=== PATIENT | male | born 1970 | race Caucasian/White ===

== ENCOUNTER 2017-01-19 18:30 | Inpatient (IN) | payer OTHER ==
[2017-01-19 18:48] VITALS: BMI 27.6
--- NOTE | 2017-01-19 20:07 | HP ---
COWS - Scale Resting Pulse: 0= [place] 80 or Below Sweatin= Chills/Flushing Restless Observation: 1= Difficult to Sit Still Pupil Size: 0= Normal to Room Light Bone or Joint Aches: 2= Severe Diffuse Aches Runny Nose/ Eye Tearin= Runny Nose/Eyes GI Upset > 30mins: 2= Nausea/Diarrhea Tremor Observation: 2= Slight Tremor Visible Yawning Observation: 1= 1-2x During Session Anxiety or Irritability: 2=Irritable/Anxious Goose Flesh Skin: 0=Smooth Skin COWS Score: 13 CIWA Score - CIWA Score Nausea/Vomitin-Mild Nausea/No Vomiting Muscle Tremors: 4-Moderate,w/Arms Extend Anxiety: 4-Mod. Anxious/Guarded Agitation: 4-Moderately Restless Paroxysmal Sweats: 1-Minimal Palms Moist Orientation: 0-Oriented Tacttile Disturbances: 0-None Auditory Disturbances: 0-None Visual Disturbances: 0-None Headache: 0-None Present CIWA-Ar Total Score: 14 Admission [facility] - HPI Chief Complaint: WITHDRAWAL SX Allergies/Adverse Reactions: Allergies Allergy/AdvReac Type Severity Reaction Status Date / Time chlorpromazine HCl Allergy Severe Swelling Verified 09/10/16 19:00 [From Thorazine] gabapentin [From Neurontin] Allergy Severe Swelling Verified 09/10/16 19:00 haloperidol [From Haldol] Allergy Severe Swelling Verified 09/10/16 19:00 haloperidol lactate Allergy Severe Swelling Verified 09/10/16 19:00 [From Haldol] History of Present Illness: 46 YEARS OLD MALE WITH LONG HISTORY OF OPIOID XANAX KLONOPIN NICOTINE DEPENDENCE DENIES MEDICAL ISSUE HAS SCHIZOAFFECTIVE DISORDER IS ADMITTED TO DETOX Exam Limitations: No Limitations - Ebola screening Have you traveled outside of the country in the last 21 days: No Have you had contact with anyone from an Ebola affected area: No Have you been sick,other than usual withdrawal symptoms: No Do you have a fever: No - Review of Systems Constitutional: Chills, Changes in sleep, Weight Stable EENT: reports: No Symptoms Reported Respiratory: reports: No Symptoms reported Cardiac: reports: No Symptoms Reported GI: reports: Nausea, Poor Fluid Intake, Abdominal cramping : reports: No Symptoms Reported Musculoskeletal: reports: Back Pain, Joint Pain, Muscle Pain, Neck Pain Integumentary: reports: No Symptoms Reported Neuro: reports: Tremors Endocrine: reports: No Symptoms Reported Hematology: reports: No Symptoms Reported Psychiatric: reports: Judgement Intact, Depressed Other Systems: Reviewed and Negative Patient History - Patient Medical History Hx Anemia: No Hx Asthma: No Hx Chronic Obstructive Pulmonary Disease (COPD): No Hx Cancer: No Hx Cardiac Disorders: No Hx Congestive Heart Failure: No Hx Hypertension: No Hx Hypercholesterolemia: No Hx Pacemaker: No HX Cerebrovascular Accident: No Hx Seizures: No Hx Dementia: No Hx Diabetes: No Hx Gastrointestinal Disorders: No Hx Liver Disease: No Hx Genitourinary Disorders: No Hx Sexually Transmitted Disorders: No Hx Renal Disease (ESRD): No Hx Thyroid Disease: No Hx Human Immunodeficiency Virus (HIV): No (06/04 lastnegative) Hx Hepatitis C: No Hx Depression: No Hx Suicide Attempt: No Hx Bipolar Disorder: Yes Hx Schizophrenia: No - Patient Surgical History Past Surgical History: No Hx Neurologic Surgery: Yes (r/t Head Injury 2014) Hx Cataract Extraction: No Hx Cardiac Surgery: No Hx Lung Surgery: No Hx Breast Surgery: No Hx Breast Biopsy: No Hx Abdominal Surgery: No Hx Appendectomy: No Hx Cholecystectomy: No Hx Genitourinary Surgery: No Hx Orthopedic Surgery: No Anesthesia Reaction: No - PPD History Previous Implant?: Yes Documented Results: Negative w/o proof Implanted On Prior R Admission?: Yes Date: 09/12/16 PPD to be Administered?: Yes - Smoking Cessation Smoking history: Current every day smoker Have you smoked in the past 12 months: Yes Aproximately how many cigarettes per day: 20 Cigars Per Day: 0 Hx Chewing Tobacco Use: No Initiated information on smoking cessation: Yes 'Breaking Loose' booklet given: 01/19/17 - Substance & Tx. History Hx Alcohol Use: No Hx Substance Use: Yes Substance Use Type: Opiates Hx Substance Use Treatment: Yes - Substances Abused Heroin Route: Inhalation Frequency: Daily Amount used: 10 bags Age of first use: 22 Date of Last Use: 01/18/17 Alprazolam (Xanax) Route: Oral Frequency: 3-6 times per week Amount used: 5mg Age of first use: 31 Date of Last Use: 01/18/17 Benzodiazepine (Klonopin) Route: Oral Frequency: 3-6 times per week Amount used: 3 x 2mg Age of first use: 26 Date of Last Use: 01/18/17 Family Disease History - Family Disease History Family Disease History: Other: Father (alcohol), Mother (alcohol), Brother ( alcohol,dsa), Sister (alcohol,dsa) Admission Physical Exam [facility] - Vital Signs Vital Signs: Vital Signs - 24 hr 01/19/17 18:40 Temperature 96.4 F L Pulse Rate 69 Respiratory 18 Rate Blood Pressure 118/75 - Physical General Appearance: Yes: Nourished, Appropriately Dressed, Mild Distress, Tremorous, Irritable, Sweating, Anxious HEENTM: Yes: Hearing grossly Normal, Normal ENT Inspection, Normocephalic, Normal Voice Respiratory: Yes: Chest Non-Tender, Lungs Clear, Normal Breath Sounds, No Respiratory Distress, No Accessory Muscle Use Neck: Yes: Supple, Trachea in good position Breast: Yes: Breasts Symetrical Cardiology: Yes: Regular Rhythm, Regular Rate, S1, S2 Abdominal: Yes: Non Tender, Soft Genitourinary: Yes: Within Normal Limits Back: Yes: Normal Inspection Musculoskeletal: Yes: full range of Motion, Gait Steady, Back pain, Muscle Pain Extremities: Yes: Normal Inspection, Normal Range of Motion, Non-Tender, Tremors Neurological: Yes: Alert, Motor Strength 5/5, Normal Response, Depressed Affect Integumentary: Yes: Warm Lymphatic: Yes: Within Normal Limits Cleared for Admission [facility] - Detox or Rehab [facility] Level of Care: Medically Managed Detox Regimen/Protocol: Methadone [facility] Breath Alcohol Content Breath Alcohol Content: 0.026 Urine Drug Screen - Control Is Test Valid: Yes - Results Drug Screen Negative: No Urine Drug Screen Results: OPI-Opiates, TCA-Tricyclic Antidepress
[2017-01-19] MEDS ORDERED: LOPERAMIDE HCL 2 MG CAPSULE PO PRN (20:14)
[2017-01-19] MEDS ORDERED: P-EPHED 60MG/TRIPROLIDI 2.5MG TABLET PO PRN (20:14)
[2017-01-19] MEDS ORDERED: MAG HYDROX/AL HYDROX/SIMETH 30 ML UNIT-DOSE CUP PO PRN (20:14)
[2017-01-19] MEDS ORDERED: diphenhydrAMINE HCL 50 MG CAPSULE PO PRN (20:14)
[2017-01-19] MEDS ORDERED: guaiFENesin/D-METHORPHAN HB 10 ML UNIT-DOSE CUPS PO PRN (20:14)
[2017-01-19] MEDS ORDERED: MAGNESIUM HYDROX 2400MG/30ML ORAL SUSPENSION 30 ML CUP PO PRN (20:14)
[2017-01-19] MEDS ORDERED: MENTHOL/PHENOL 1 EACH UD MM PRN (20:14)
[2017-01-19] MEDS ORDERED: ACETAMINOPHEN 325 MG TABLET (FP) PO PRN (20:14)
[2017-01-19] MEDS ORDERED: MAGNESIUM CITRATE 300 ML BOTTLE PO PRN (20:14)
[2017-01-19] MEDS ORDERED: METHADONE HCL 10 MG TABLET (FOR DETOX USE ONLY) PO ONE ×2 (20:14→23:00)
[2017-01-19] MEDS: diazePAM 5 MG TABLET PO PRN (22:26)
[2017-01-19] MEDS: RANITIDINE HCL 150 MG TABLET (FP) PO SCH (22:27)
[2017-01-19] MEDS: THIAMINE HCL 100 MG TABLET (FP) PO SCH (22:27)
[2017-01-19] MEDS: NICOTINE POLACRILEX 4 MG GUM BC PRN (22:28)
[2017-01-20 00:01] LABS: URINE APPEARANCE CLEAR; URINE BILIRUBIN NEGATIVE (NEGATIVE); URINE BLOOD NEGATIVE (NEGATIVE); URINE COLOR YELLOW; URINE GLUCOSE (UA) NEGATIVE (NEGATIVE); URINE KETONE NEGATIVE (NEGATIVE); URINE LEUK ESTERASE NEGATIVE (NEGATIVE); URINE NITRITE NEGATIVE (NEGATIVE); URINE PROTEIN NEGATIVE (NEGATIVE); URINE UROBILINOGEN NEGATIVE E.U./dl (0.2-1.0)
--- NOTE | 2017-01-20 08:17 | CONSULT ---
[facility] Psychiatric Consult - Data Date of interview: 02/08/17 Admission source: [facility] Identifying data: This is 46 yuears old male with history of psychiatric hospitalizations, history of Bipolar disorder, intoxicated with : Alcohol, Opioids, Xanax and Nicotine Substance Abuse History: - Smoking Cessation. Smoking history: Current every day smoker. Have you smoked in the past 12 months: Yes. Aproximately how many cigarettes per day: 20. Cigars Per Day: 0. Hx Chewing Tobacco Use: No. Initiated information on smoking cessation: Yes. 'Breaking Loose' booklet given : 01/19/17. - Substance & Tx. History. Hx Alcohol Use: No. Hx Substance Use: Yes. Substance Use Type: Opiates. Hx Substance Use Treatment: Yes. - Substances Abused. Heroin. Route: Inhalation. Frequency: Daily. Amount used: 10 bags. Age of first use: 22. Date of Last Use: 01/18/17. Alprazolam (Xanax). Route: Oral. Frequency: 3-6 times per week. Amount used: 5mg. Age of first use: 31. Date of Last Use: 01/18/17. Benzodiazepine ( Klonopin). Route: Oral. Frequency: 3-6 times per week. Amount used: 3 x 2mg. Age of first use: 26. Date of Last Use: 01/18/17 Medical History: Weight loss, Asthma Psychiatric History: Patient reports history of Bipolar disorder with most recent psychiatrioc admission on [address] [place] [address]. Reports taking prior to admission: Zoloft 100mg poqd. Trazodone 100mg po qhs Physical/Sexual Abuse/Trauma History: Denies Additional Comment: Zoloft 100mg poqd. Trazodone 100mg po qhs Mental Status Exam - Mental Status Exam Alert and Oriented to: Person Cognitive Function: Fair Patient Appearance: Unkempt Mood: Sad Affect: Flat Patient Behavior: Sedated Speech Pattern: Delayed Voice Loudness: Mildly Soft/Quiet Thought Process: Circumstantial Thought Disorder: Being Controlled Hallucinations: Denies Suicidal Ideation: Denies Homicidal Ideation: Denies Insight/Judgement: Fair Sleep: Difficulty falling asleep ( ) Appetite: Weight loss Muscle strength/Tone: Mild Hypotonicity Gait/Station: Shuffling Additional Comments: Zoloft 100mg poqd. Trazodone 100mg po qhs Psychiatric Findings - Problem List ([place] 1, 2,3) (1) Alcohol dependence with uncomplicated withdrawal Current Visit: No Status: Acute (2) Bipolar disorder Current Visit: No Status: Acute (3) Nicotine dependence Current Visit: No Status: Acute (4) Opioid dependence with withdrawal Current Visit: No Status: Acute (5) Substance induced mood disorder Current Visit: No Status: Acute - Initial Treatment Plan Initial Treatment Plan: Zoloft 100mg poqd. Trazodone 100mg po qhs
[2017-01-20] MEDS ORDERED: TRIMETHOBENZAMIDE HCL 300 MG CAPSULE PO PRN (09:54)
[2017-01-20] MEDS ORDERED: METHADONE HCL 10 MG TABLET (FOR DETOX USE ONLY) PO ONE (10:00)
[2017-01-20] MEDS: SERTRALINE HCL 50 MG TABLET (FP) PO SCH (10:00)
[2017-01-20] MEDS: PRENATAL VITAMINS W/ FOLIC ACID TABLET (FP) PO SCH (10:11)
[2017-01-20] MEDS: RANITIDINE HCL 150 MG TABLET (FP) PO SCH ×2 (10:12→22:26)
[2017-01-20] MEDS: NICOTINE 21 MG/24 HOURS TOPICAL PATCH TD SCH (10:12)
[2017-01-20 10:14] LABS: MCH 30.8 pg (25.7-33.7); MCHC 35.6 g/dl (32.0-35.9); MEAN CELL VOLUME 86.6 fl (80-96); MEAN PLT VOLUME 7.1 fl (7.5-11.1); PLATELET COUNT 244 K/MM3 (134-434); RDW 13.3 % (11.9-15.9); WHITE BLOOD COUNT 7.8 K/mm3 (4.0-10.0)
[2017-01-20] MEDS: diazePAM 5 MG TABLET PO PRN ×3 (10:16→22:26)
[2017-01-20 10:48] LABS: ALBUMIN 3.4 g/dl (3.4-5.0); ALK PHOS 65 U/L (45-117); ANION GAP 8 (8-16); BILIRUBIN,TOTAL 0.6 mg/dL (0.2-1.0); CALCIUM 8.4 mg/dL (8.5-10.1); CO2 30 mmol/L (21-32); COCKROFT - GAULT 174.41; CREATININE 0.7 mg/dL (0.7-1.3); GLUCOSE,RANDOM 91 mg/dL (74-106); SGOT/AST 21 U/L (15-37); SGPT/ALT 44 U/L (12-78); TOT PROT 6.3 g/dl (6.4-8.2)
--- NOTE | 2017-01-20 10:53 | PN ---
[facility] CIWA - CIWA Score Nausea/Vomitin-No Nausea/No Vomiting Muscle Tremors: 4-Moderate,w/Arms Extend Anxiety: 3 Agitation: 4-Moderately Restless Paroxysmal Sweats: 2 Orientation: 0-Oriented Tacttile Disturbances: 0-None Auditory Disturbances: 0-None Visual Disturbances: 0-None Headache: 0-None Present CIWA-Ar Total Score: 13 BHS COWS - Scale Resting Pulse: 0= [place] 80 or Below Sweatin=Flushed/Facial Moisture Restless Observation: 1= Difficult to Sit Still Pupil Size: 0= Normal to Room Light Bone or Joint Aches: 2= Severe Diffuse Aches Runny Nose/ Eye Tearin= Runny Nose/Eyes GI Upset > 30mins: 2= Nausea/Diarrhea Tremor Observation of Outstretched Hands: 1= Tremor [place], Not Seen Yawning Observation: 1= 1-2x During Session Anxiety or Irritability: 1=Feels Anxious/Irritable Goose Flesh Skin: 0=Smooth Skin COWS Score: 12 S Progress Note (SOAP) Subjective: agitation anxiety sweats shakes interrupted sleep teary eyes i need saline for my eye contacts Objective: 01/20/17 10:52 Vital Signs Temperature 97.7 F 01/20/17 09:10 Pulse Rate 67 01/20/17 09:10 Respiratory Rate 18 01/20/17 09:10 Blood Pressure 128/86 01/20/17 09:10 O2 Sat by Pulse Oximetry (%) Laboratory Tests 01/19/17 01/20/17 23:40 07:00 WBC 7.8 RBC 4.16 Hgb 12.8 Hct 36.1 MCV 86.6 MCHC 35.6 RDW 13.3 Plt Count 244 MPV 7.1 L Urine Color Yellow Urine Appearance Clear Urine pH 6.0 Urine Protein Negative Urine Glucose (UA) Negative Urine Ketones Negative Urine Blood Negative Urine Nitrite Negative Urine Bilirubin Negative Urine Urobilinogen Negative Ur Leukocyte Esterase Negative labs pending awake/alert ambulating no acute distress Assessment: 01/20/17 10:53 withdrawal sx Plan: continue detox increase fluids labs pending saline ordered rito almodovar
[2017-01-20] MEDS: NICOTINE POLACRILEX 4 MG GUM BC PRN (15:29)
--- NOTE | 2017-01-20 17:37 | EKG ---
Test Reason : Blood Pressure : / mmHG Vent. Rate : 069 BPM Atrial Rate : 069 BPM P-R Int : 156 ms QRS Dur : 098 ms QT Int : 430 ms P-R-T Axes : 089 065 038 degrees QTc Int : 460 ms NORMAL SINUS RHYTHM INCOMPLETE RIGHT BUNDLE BRANCH BLOCK BORDERLINE ECG NO PREVIOUS ECGS AVAILABLE Confirmed by FLORI CAMPA, SANJEEV ([id number]) on 01/20/2017 5:37:03 PM Referred By: Confirmed By:SANJEEV RUBY MD
[2017-01-20] MEDS: traZODone HCL 100 MG TABLET (FP) PO SCH (22:26)
[2017-01-20] MEDS: THIAMINE HCL 100 MG TABLET (FP) PO SCH (22:26)
--- NOTE | 2017-01-21 08:42 | PN ---
S CIWA - CIWA Score Nausea/Vomitin Muscle Tremors: 3 Anxiety: 3 Agitation: 3 Paroxysmal Sweats: 1-Minimal Palms Moist Orientation: 0-Oriented Tacttile Disturbances: 1-Very Mild Itch/Numbness Auditory Disturbances: 1-Very Mild Visual Disturbances: 1-Very Mild Sensitivity Headache: 2-Mild CIWA-Ar Total Score: 18 BHS COWS - Scale Resting Pulse: 0= [place] 80 or Below Sweatin= Chills/Flushing Restless Observation: 3= Extraneous Movement Pupil Size: 1= Pupils >than Normal Bone or Joint Aches: 2= Severe Diffuse Aches Runny Nose/ Eye Tearin= Runny Nose/Eyes GI Upset > 30mins: 2= Nausea/Diarrhea Tremor Observation of Outstretched Hands: 2= Slight Tremor Visible Yawning Observation: 1= 1-2x During Session Anxiety or Irritability: 2=Irritable/Anxious Goose Flesh Skin: 0=Smooth Skin COWS Score: 16 S Progress Note (SOAP) Subjective: ALERT,IRRITABLE,ANXIOUS,INTERRUPTED SLEEP,,PAIN IN THE BODY AND BACK,TREMOR Objective: 01/21/17 08:44 Vital Signs Temperature 97.5 F L 01/21/17 06:22 Pulse Rate 57 L 01/21/17 06:22 Respiratory Rate 17 01/21/17 06:22 Blood Pressure 144/71 01/21/17 06:22 O2 Sat by Pulse Oximetry (%) EKG NSR 01/21/17 08:46 Assessment: 01/21/17 08:45 Laboratory Last Values WBC 7.8 K/mm3 (4.0-10.0) 01/20/17 07:00 RBC 4.16 M/mm3 (4.00-5.60) 01/20/17 07:00 Hgb 12.8 GM/dL (11.7-16.9) 01/20/17 07:00 Hct 36.1 % (35.4-49) 01/20/17 07:00 MCV 86.6 fl (80-96) 01/20/17 07:00 MCHC 35.6 g/dl (32.0-35.9) 01/20/17 07:00 RDW 13.3 % (11.9-15.9) 01/20/17 07:00 Plt Count 244 K/MM3 (134-434) 01/20/17 07:00 MPV 7.1 fl (7.5-11.1) L 01/20/17 07:00 Sodium 144 mmol/L (136-145) 01/20/17 07:00 Potassium 3.9 mmol/L (3.5-5.1) 01/20/17 07:00 Chloride 106 mmol/L (98-107) 01/20/17 07:00 Carbon Dioxide 30 mmol/L (21-32) 01/20/17 07:00 Anion Gap 8 (8-16) 01/20/17 07:00 BUN 10 mg/dL (7-18) D 01/20/17 07:00 Creatinine 0.7 mg/dL (0.7-1.3) 01/20/17 07:00 Creat Clearance w eGFR > 60 (>60) 01/20/17 07:00 Random Glucose 91 mg/dL (74-106) 01/20/17 07:00 Calcium 8.4 mg/dL (8.5-10.1) L 01/20/17 07:00 Total Bilirubin 0.6 mg/dL (0.2-1.0) D 01/20/17 07:00 AST 21 U/L (15-37) D 01/20/17 07:00 ALT 44 U/L (12-78) D 01/20/17 07:00 Alkaline Phosphatase 65 U/L (45-117) 01/20/17 07:00 Total Protein 6.3 g/dl (6.4-8.2) L 01/20/17 07:00 Albumin 3.4 g/dl (3.4-5.0) 01/20/17 07:00 Urine Color Yellow 01/19/17 23:40 Urine Appearance Clear 01/19/17 23:40 Urine pH 6.0 (5.0-8.0) 01/19/17 23:40 Ur Specific [place] 1.020 (1.005-1.025) 01/19/17 23:40 Urine Protein Negative (NEGATIVE) 01/19/17 23:40 Urine Glucose (UA) Negative (NEGATIVE) 01/19/17 23:40 Urine Ketones Negative (NEGATIVE) 01/19/17 23:40 Urine Blood Negative (NEGATIVE) 01/19/17 23:40 Urine Nitrite Negative (NEGATIVE) 01/19/17 23:40 Urine Bilirubin Negative (NEGATIVE) 01/19/17 23:40 Urine Urobilinogen Negative E.U./dl (0.2-1.0) 01/19/17 23:40 Ur Leukocyte Esterase Negative (NEGATIVE) 01/19/17 23:40 RPR Titer Nonreactive (NONREACTIVE) 01/20/17 07:00 01/21/17 08:46 WITHDRAWAL SYMPTOM Plan: CONTINUE DETOX
[2017-01-21] MEDS ORDERED: METHADONE HCL 5 MG TABLET (FOR DETOX USE ONLY) PO ONE (10:00)
[2017-01-21] MEDS: SERTRALINE HCL 50 MG TABLET (FP) PO SCH (10:07)
[2017-01-21] MEDS: PRENATAL VITAMINS W/ FOLIC ACID TABLET (FP) PO SCH (10:07)
[2017-01-21] MEDS: RANITIDINE HCL 150 MG TABLET (FP) PO SCH ×2 (10:07→22:26)
[2017-01-21] MEDS: NICOTINE 21 MG/24 HOURS TOPICAL PATCH TD SCH (10:07)
[2017-01-21] MEDS: diazePAM 5 MG TABLET PO PRN ×3 (10:10→22:26)
[2017-01-21] MEDS: traZODone HCL 100 MG TABLET (FP) PO SCH (22:26)
[2017-01-21] MEDS: THIAMINE HCL 100 MG TABLET (FP) PO SCH (22:26)
[2017-01-22] MEDS ORDERED: METHADONE HCL 10 MG TABLET (FOR DETOX USE ONLY) PO ONE (10:00)
[2017-01-22] MEDS: SERTRALINE HCL 50 MG TABLET (FP) PO SCH (10:16)
[2017-01-22] MEDS: RANITIDINE HCL 150 MG TABLET (FP) PO SCH ×2 (10:16→22:04)
[2017-01-22] MEDS: NICOTINE 21 MG/24 HOURS TOPICAL PATCH TD SCH (10:16)
[2017-01-22] MEDS: PRENATAL VITAMINS W/ FOLIC ACID TABLET (FP) PO SCH (10:16)
[2017-01-22] MEDS: diazePAM 5 MG TABLET PO PRN ×2 (10:19→17:12)
--- NOTE | 2017-01-22 11:45 | PN ---
S Progress Note (SOAP) Subjective: Increased anxiety Objective: 01/22/17 11:44 Vital Signs - 8 hr 01/22/17 01/22/17 06:00 10:31 Temperature 97.9 F 97.5 F L Pulse Rate 66 80 Respiratory 18 16 Rate Blood Pressure 110/77 109/71 Laboratory Last Values WBC 7.8 K/mm3 (4.0-10.0) 01/20/17 07:00 RBC 4.16 M/mm3 (4.00-5.60) 01/20/17 07:00 Hgb 12.8 GM/dL (11.7-16.9) 01/20/17 07:00 Hct 36.1 % (35.4-49) 01/20/17 07:00 MCV 86.6 fl (80-96) 01/20/17 07:00 MCHC 35.6 g/dl (32.0-35.9) 01/20/17 07:00 RDW 13.3 % (11.9-15.9) 01/20/17 07:00 Plt Count 244 K/MM3 (134-434) 01/20/17 07:00 MPV 7.1 fl (7.5-11.1) L 01/20/17 07:00 Sodium 144 mmol/L (136-145) 01/20/17 07:00 Potassium 3.9 mmol/L (3.5-5.1) 01/20/17 07:00 Chloride 106 mmol/L (98-107) 01/20/17 07:00 Carbon Dioxide 30 mmol/L (21-32) 01/20/17 07:00 Anion Gap 8 (8-16) 01/20/17 07:00 BUN 10 mg/dL (7-18) D 01/20/17 07:00 Creatinine 0.7 mg/dL (0.7-1.3) 01/20/17 07:00 Creat Clearance w eGFR > 60 (>60) 01/20/17 07:00 Random Glucose 91 mg/dL (74-106) 01/20/17 07:00 Calcium 8.4 mg/dL (8.5-10.1) L 01/20/17 07:00 Total Bilirubin 0.6 mg/dL (0.2-1.0) D 01/20/17 07:00 AST 21 U/L (15-37) D 01/20/17 07:00 ALT 44 U/L (12-78) D 01/20/17 07:00 Alkaline Phosphatase 65 U/L (45-117) 01/20/17 07:00 Total Protein 6.3 g/dl (6.4-8.2) L 01/20/17 07:00 Albumin 3.4 g/dl (3.4-5.0) 01/20/17 07:00 Urine Color Yellow 01/19/17 23:40 Urine Appearance Clear 01/19/17 23:40 Urine pH 6.0 (5.0-8.0) 01/19/17 23:40 Ur Specific [place] 1.020 (1.005-1.025) 01/19/17 23:40 Urine Protein Negative (NEGATIVE) 01/19/17 23:40 Urine Glucose (UA) Negative (NEGATIVE) 01/19/17 23:40 Urine Ketones Negative (NEGATIVE) 01/19/17 23:40 Urine Blood Negative (NEGATIVE) 01/19/17 23:40 Urine Nitrite Negative (NEGATIVE) 01/19/17 23:40 Urine Bilirubin Negative (NEGATIVE) 01/19/17 23:40 Urine Urobilinogen Negative E.U./dl (0.2-1.0) 01/19/17 23:40 Ur Leukocyte Esterase Negative (NEGATIVE) 01/19/17 23:40 RPR Titer Nonreactive (NONREACTIVE) 01/20/17 07:00 labs noted Assessment: 01/22/17 11:44 withdrawal sx Plan: continue detox
[2017-01-22] MEDS: THIAMINE HCL 100 MG TABLET (FP) PO SCH (22:04)
[2017-01-22] MEDS: traZODone HCL 100 MG TABLET (FP) PO SCH (22:07)
[2017-01-23] MEDS ORDERED: METHADONE HCL 5 MG TABLET (FOR DETOX USE ONLY) PO ONE (06:00)
[2017-01-23] MEDS: PRENATAL VITAMINS W/ FOLIC ACID TABLET (FP) PO SCH (09:03)
[2017-01-23] MEDS: SERTRALINE HCL 50 MG TABLET (FP) PO SCH (09:03)
[2017-01-23] MEDS: RANITIDINE HCL 150 MG TABLET (FP) PO SCH (09:03)
--- NOTE | 2017-01-23 09:29 | DS ---
[facility] Detox Discharge Summary Admission Date: 01/19/17 Discharge Date: 01/23/17 - History Present History: Opioid Dependence, Sedative Dependence Pertinent Past History: Asthma Mood disorder - Physical Exam Results Vital Signs: Vital Signs Temperature 97.9 F 01/23/17 06:00 Pulse Rate 65 01/23/17 06:00 Respiratory Rate 18 01/23/17 06:00 Blood Pressure 122/73 01/23/17 06:00 O2 Sat by Pulse Oximetry (%) Pertinent Admission Physical Exam Findings: Withdrawal sx. Laboratory Last Values WBC 7.8 K/mm3 (4.0-10.0) 01/20/17 07:00 RBC 4.16 M/mm3 (4.00-5.60) 01/20/17 07:00 Hgb 12.8 GM/dL (11.7-16.9) 01/20/17 07:00 Hct 36.1 % (35.4-49) 01/20/17 07:00 MCV 86.6 fl (80-96) 01/20/17 07:00 MCHC 35.6 g/dl (32.0-35.9) 01/20/17 07:00 RDW 13.3 % (11.9-15.9) 01/20/17 07:00 Plt Count 244 K/MM3 (134-434) 01/20/17 07:00 MPV 7.1 fl (7.5-11.1) L 01/20/17 07:00 Sodium 144 mmol/L (136-145) 01/20/17 07:00 Potassium 3.9 mmol/L (3.5-5.1) 01/20/17 07:00 Chloride 106 mmol/L (98-107) 01/20/17 07:00 Carbon Dioxide 30 mmol/L (21-32) 01/20/17 07:00 Anion Gap 8 (8-16) 01/20/17 07:00 BUN 10 mg/dL (7-18) D 01/20/17 07:00 Creatinine 0.7 mg/dL (0.7-1.3) 01/20/17 07:00 Creat Clearance w eGFR > 60 (>60) 01/20/17 07:00 Random Glucose 91 mg/dL (74-106) 01/20/17 07:00 Calcium 8.4 mg/dL (8.5-10.1) L 01/20/17 07:00 Total Bilirubin 0.6 mg/dL (0.2-1.0) D 01/20/17 07:00 AST 21 U/L (15-37) D 01/20/17 07:00 ALT 44 U/L (12-78) D 01/20/17 07:00 Alkaline Phosphatase 65 U/L (45-117) 01/20/17 07:00 Total Protein 6.3 g/dl (6.4-8.2) L 01/20/17 07:00 Albumin 3.4 g/dl (3.4-5.0) 01/20/17 07:00 Urine Color Yellow 01/19/17 23:40 Urine Appearance Clear 01/19/17 23:40 Urine pH 6.0 (5.0-8.0) 01/19/17 23:40 Ur Specific [place] 1.020 (1.005-1.025) 01/19/17 23:40 Urine Protein Negative (NEGATIVE) 01/19/17 23:40 Urine Glucose (UA) Negative (NEGATIVE) 01/19/17 23:40 Urine Ketones Negative (NEGATIVE) 01/19/17 23:40 Urine Blood Negative (NEGATIVE) 01/19/17 23:40 Urine Nitrite Negative (NEGATIVE) 01/19/17 23:40 Urine Bilirubin Negative (NEGATIVE) 01/19/17 23:40 Urine Urobilinogen Negative E.U./dl (0.2-1.0) 01/19/17 23:40 Ur Leukocyte Esterase Negative (NEGATIVE) 01/19/17 23:40 RPR Titer Nonreactive (NONREACTIVE) 01/20/17 07:00 labs noted - Treatment Hospital Course: Detox Protocol Followed, Detoxed Safely, Responded well, Discharged Condition Good, Rehab Referral Accepted Patient has Accepted a Rehab Referral to: [facility] - Medication Discharge Medications: Ambulatory Orders Sertraline HCl 100 mg PO DAILY 09/11/16 Trazodone HCl 100 mg PO HS 09/11/16 Sertraline HCl [Zoloft -] 100 mg PO DAILY #30 tablet 01/20/17 Trazodone HCl [Desyrel -] 100 mg PO HS #30 tablet 01/20/17 - Diagnosis (1) Bipolar disorder Current Visit: Yes Status: Acute (2) Nicotine dependence Current Visit: Yes Status: Acute Qualifiers: Nicotine product type: cigarettes Substance use status: uncomplicated Qualified Code(s): F17.210 - Nicotine dependence, cigarettes, uncomplicated (3) Opioid dependence with withdrawal Current Visit: Yes Status: Acute (4) Substance induced mood disorder Current Visit: Yes Status: Acute (5) Uncomplicated sedative, hypnotic or anxiolytic withdrawal Current Visit: Yes Status: Acute (6) Asthma Current Visit: Yes Status: Chronic Qualifiers: Asthma severity: mild intermittent Asthma complication type: uncomplicated Qualified Code(s): J45.20 - Mild intermittent asthma, uncomplicated - AMA Did Patient Leave Against Medical Advice: No
[2017-01-23 09:34] VITALS: BP 108/80; PULSE 87; TEMP 97.3
== END 2017-01-23 09:11 | disposition home or self-care (01) | DRG 897 ==
LOC: YASAS 18:30 → Y6N 19:39
PROVIDERS: ADMIT Internal Medicine Addiction Medicine; ATTEND Internal Medicine Addiction Medicine
PROC: HZ2ZZZZ Detoxification Services for Substance Abuse Treatment (ICD-10-PCS; principal; 2017-01-19)
DX: F11.23 Opioid dependence with withdrawal (principal); F13.230 Sedative, hypnotic or anxiolytic dependence with withdrawal, uncomplicated; F17.210 Nicotine dependence, cigarettes, uncomplicated; F31.9 Bipolar disorder, unspecified; F19.24 Other psychoactive substance dependence with psychoactive substance-induced mood disorder; J45.20 Mild intermittent asthma, uncomplicated
CPT/HCPCS: 36415; 80053; 81003; 85027; 86593; 93005; 93010